=== PATIENT | male | born 1940 | race Caucasian/White ===

== ENCOUNTER 2018-01-10 07:21 | Day surgery (SDC) | payer MEDICARE, BC ==
[~2018-01-10] VITALS: Ht 184.2 cm; Wt 86.9 kg
[2018-01-10] VITALS (16 sets, daily range): BP systolic 122–176; BP diastolic 60–109
[2018-01-10] MEDS ORDERED: LIDOcaine 1% 30ml preserv. free vial SQ STA (07:46)
[2018-01-10] MEDS ORDERED: MIDAZolam 1mg/ml 10ml vial IV ONE (08:05)
[2018-01-10] MEDS ORDERED: fentaNYL/PF 50MCG/1 ML 2ML syringe IV ONE (08:05)
[2018-01-10] MEDS ORDERED: normal saline 1000ml 1,000 ML IV PRN (08:05)
[2018-01-10] MEDS ORDERED: LIDOcaine 1% (10mg/ml) 5ml syringe SQ STA (08:20)
[2018-01-10] MEDS ORDERED: LIDOcaine 1% (10mg/ml)/PF 5ml amp IJ STA (08:23)
[2018-01-10] MEDS ORDERED: MULT1TAB74 PO (08:50)
[2018-01-10] MEDS ORDERED: FINA5TAB PO (08:50)
[2018-01-10] MEDS ORDERED: TERA10CA4 PO (08:50)
[2018-01-10] MEDS ORDERED: ASPI-1265 PO (08:50)
[2018-01-10] MEDS ORDERED: FISH1CAP15 PO (08:50)
[2018-01-10] MEDS ORDERED: LIDOcaine 1%/PF 5ML 10 MG/ML VIAL ONE (09:13)
[2018-01-10] MEDS ORDERED: midazolam 2 mg/2 ml injection ONE (09:14)
[2018-01-10] MEDS ORDERED: fentaNYL/PF 50MCG/1 ML 2ML syringe ONE (09:14)
[2018-01-10] MEDS ORDERED: gelatin sponge, absorbable (Gelfoam 12-7MM) sponge TP ONE (10:06)
== END 2018-01-10 13:55 | disposition home or self-care (01) ==
LOC: SSTAY O 07:21
PROVIDERS: ATTEND Radiology Vascular & Interventional Radiology
DX: C22.7 Other specified carcinomas of liver (principal); N40.0 Benign prostatic hyperplasia without lower urinary tract symptoms; I48.91 Unspecified atrial fibrillation; Z87.11 Personal history of peptic ulcer disease; Z90.89 Acquired absence of other organs; Z79.82 Long term (current) use of aspirin; Z87.891 Personal history of nicotine dependence; Z72.89 Other problems related to lifestyle; Z79.899 Other long term (current) drug therapy; Z98.890 Other specified postprocedural states
CPT/HCPCS: 47000; 77012; 88341; 88342; 99152; 99153; J2001; J2250; J3010; J3490; J7030; 88305; A6449